=== PATIENT | female | born 1960 | race Caucasian/White ===

== ENCOUNTER 2021-11-20 04:17 | Inpatient (IN) ==
[2021-11-20] MEDS ORDERED: Aspirin 325 MG TABLET PO ONE (04:31)
[2021-11-20] MEDS ORDERED: 0.9 % Sodium Chloride 1,000 ML ONE ×3 (04:33→04:59)
[2021-11-20] MEDS ORDERED: *HR* Ticagrelor 90 MG TABLET PO ONE (04:37)
[2021-11-20] MEDS ORDERED: *HR* Heparin 5,000 UNIT/ML VIAL IVP ONE ×2 (04:37→17:32)
[2021-11-20] MEDS ORDERED: Morphine Sulfate 2 MG/ML SYRINGE IVP ONE (04:45)
[2021-11-20] MEDS ORDERED: Heparin 1,000 UNITS/500 mL 500 ML ONE ×2 (04:58→05:46)
[2021-11-20] MEDS ORDERED: *HR* Heparin 10,000 UNIT/10 ML VIAL ONE (04:58)
[2021-11-20] MEDS ORDERED: Iopamidol - 370 200 ML INFUS..BTL ONE ×2 (04:59→05:41)
[2021-11-20] MEDS ORDERED: Nitroglycerin 1,000 MCG/5 ML VIAL IV ONE (04:59)
[2021-11-20 05:04] LABS: Hematocrit 41.3 % (35.3-44.9); Hemoglobin 13.6 g/dL (11.5-15.4); Mean Corpuscular HGB Conc 32.9 g/dL (31.6-35.5); Mean Corpuscular Hemoglobin 32.4 pg (28.0-33.3); Mean Corpuscular Volume 98.3 fL (83.0-100.0); Platelet Count 302 K/mcL (140-400); Red Cell Distribution Width 14.4 % (11.5-14.5); White Blood Count 12.1 K/mcL (4.3-11.1)
[2021-11-20] MEDS ORDERED: *HR* Bivalirudin 250 MG VIAL IVC ONE (05:09)
[2021-11-20] MEDS ORDERED: *HR* Midazolam HCl 2 MG/2 ML VIAL ONE (05:09)
[2021-11-20] MEDS ORDERED: *HR* FentaNYL (PF) 100 MCG/2 ML VIAL ONE (05:09)
[2021-11-20 05:12] LABS: INR 0.9; Prothrombin Time 9.5 Seconds (9.4-12.1)
[2021-11-20] MEDS ORDERED: Perflutren Lipid Microsphere 1.3 ML in 0.9 % Sodium Chloride 8.7 ML IVP PRN (06:17)
[2021-11-20] MEDS ORDERED: Nitroglycerin 0.4 MG TAB.SUBL SL PRN (06:17)
[2021-11-20] MEDS ORDERED: 0.9 % Sodium Chloride 1,000 ML IVC SCH (06:30)
[2021-11-20 08:45] LABS: BUN/Creatinine Ratio 19 (6-26); Blood Urea Nitrogen 11 mg/dL (8-23); Carbon Dioxide 22 mEq/L (23-29); Chloride 109 mEq/L (98-107); Glucose 91 mg/dL (70-105); Osmolality,Calculated 285 (280-300); Potassium 4.1 mEq/L (3.5-5.1); Sodium 138 mEq/L (136-145); eGFR For African Americans > 60 (> 60); eGFR For Non-African Americans > 60 (> 60)
[2021-11-20] MEDS: lisinopriL 5 MG TABLET PO SCH (09:20)
[2021-11-20] MEDS: *HR* Ticagrelor 90 MG TABLET PO SCH ×2 (09:20→21:05)
[2021-11-20] MEDS: Aspirin 81 MG TAB.CHEW PO SCH (09:20)
[2021-11-20] MEDS: Metoprolol XL (24 HR) Succ 25 MG TAB.ER.24H PO SCH (09:20)
[2021-11-20] MEDS ORDERED: *HR* Heparin 5,000 UNIT/ML VIAL IVP PRN ×2 (17:32)
[2021-11-20] MEDS ORDERED: Heparin 25,000UNIT/250ML 1/2NS 25,000 UNIT/250 ML IV.SOLN IVC SCH (17:45)
[2021-11-20 18:32] LABS: Hematocrit 42.6 % (35.3-44.9); Hemoglobin 13.8 g/dL (11.5-15.4); Mean Corpuscular HGB Conc 32.4 g/dL (31.6-35.5); Mean Corpuscular Hemoglobin 32.6 pg (28.0-33.3); Mean Corpuscular Volume 100.7 fL (83.0-100.0); Platelet Count 274 K/mcL (140-400); Red Blood Count 4.23 M/mcL (3.82-4.97); Red Cell Distribution Width 14.5 % (11.5-14.5); White Blood Count 13.6 K/mcL (4.3-11.1)
[2021-11-20 18:45] LABS: Heparin anti-factor XA UFH < 0.04 IU/mL (0.30-0.70)
[2021-11-20 18:46] LABS: Prothrombin Time 10.9 Seconds (9.4-12.1)
[2021-11-20] MEDS: Acetaminophen 325 MG TABLET PO PRN (21:08)
[2021-11-21 02:43] LABS: Basophils % 0.3 %; Eosinophils # 0.1 K/mcL (0.0-0.6); Eosinophils % 0.7 %; Hematocrit 36.8 % (35.3-44.9); Hemoglobin 12.4 g/dL (11.5-15.4); Immature Granulocytes % 0.6 % (0-4); Lymphocytes # 1.7 K/mcL (0.6-4.6); Lymphocytes % 17.5 %; Mean Corpuscular HGB Conc 33.7 g/dL (31.6-35.5); Mean Corpuscular Hemoglobin 32.5 pg (28.0-33.3); Mean Corpuscular Volume 96.3 fL (83.0-100.0); Mean Platelet Volume 10.1 fL (9.4-12.4); Monocytes % 10.4 %; Neutrophils # 6.6 K/mcL (1.6-8.9); Platelet Count 262 K/mcL (140-400); Red Blood Count 3.82 M/mcL (3.82-4.97); Red Cell Distribution Width 14.2 % (11.5-14.5); Segmented Neutrophils % 70.5 %; White Blood Count 9.4 K/mcL (4.3-11.1)
[2021-11-21 03:23] LABS: BUN/Creatinine Ratio 15 (6-26); Blood Urea Nitrogen 8 mg/dL (8-23); Calcium 8.4 mg/dL (8.6-10.3); Carbon Dioxide 23 mEq/L (23-29); Chloride 108 mEq/L (98-107); Chol/HDL Ratio 5.5 (0-4.9); Cholesterol 233 mg/dL (< 200); Glucose 104 mg/dL (70-105); HDL Cholesterol 42 mg/dL (40-59); LDL Cholesterol,Calculated 137 mg/dL (< 100); Osmolality,Calculated 287 (280-300); Potassium 3.4 mEq/L (3.5-5.1); Sodium 139 mEq/L (136-145); Triglycerides 271 mg/dL (< 150); eGFR For African Americans > 60 (> 60); eGFR For Non-African Americans > 60 (> 60)
[2021-11-21 03:51] LABS: Troponin I 12.23 ng/mL (< 0.04)
[2021-11-21] MEDS: Aspirin 81 MG TAB.CHEW PO SCH (08:19)
[2021-11-21] MEDS: lisinopriL 5 MG TABLET PO SCH (08:19)
[2021-11-21] MEDS: Metoprolol XL (24 HR) Succ 25 MG TAB.ER.24H PO SCH (08:19)
[2021-11-21] MEDS: *HR* Ticagrelor 90 MG TABLET PO SCH ×2 (08:42→19:55)
[2021-11-21] MEDS ORDERED: *HR* FentaNYL (PF) 100 MCG/2 ML VIAL ONE (12:47)
[2021-11-21] MEDS ORDERED: *HR* Heparin 10,000 UNIT/10 ML VIAL ONE ×2 (12:48→13:52)
[2021-11-21] MEDS ORDERED: 0.9 % Sodium Chloride 2,000 ML ONE (12:48)
[2021-11-21] MEDS ORDERED: Iopamidol - 370 200 ML INFUS..BTL ONE (12:48)
[2021-11-21] MEDS ORDERED: *HR* Midazolam HCl 2 MG/2 ML VIAL ONE (12:48)
[2021-11-21] MEDS ORDERED: Nitroglycerin 1,000 MCG/5 ML VIAL IV ONE (12:48)
[2021-11-21] MEDS ORDERED: Heparin 1,000 UNITS/500 mL 500 ML ONE (12:48)
[2021-11-21] MEDS ORDERED: Tirofiban 12.5 MG/250ML 12.5 MG/250 ML BAG ONE (14:12)
[2021-11-21] MEDS: Acetaminophen 325 MG TABLET PO PRN ×2 (16:39→22:15)
[2021-11-22 02:52] LABS: Basophils % 0.3 %; Eosinophils # 0.1 K/mcL (0.0-0.6); Eosinophils % 0.7 %; Hematocrit 35.3 % (35.3-44.9); Hemoglobin 11.7 g/dL (11.5-15.4); Immature Granulocytes % 0.8 % (0-4); Lymphocytes # 1.5 K/mcL (0.6-4.6); Lymphocytes % 13.3 %; Mean Corpuscular HGB Conc 33.1 g/dL (31.6-35.5); Mean Corpuscular Hemoglobin 32.5 pg (28.0-33.3); Mean Corpuscular Volume 98.1 fL (83.0-100.0); Mean Platelet Volume 10.3 fL (9.4-12.4); Monocytes # 1.2 K/mcL (0.0-1.3); Monocytes % 10.1 %; Neutrophils # 8.7 K/mcL (1.6-8.9); Platelet Count 283 K/mcL (140-400); Red Cell Distribution Width 14.5 % (11.5-14.5); Segmented Neutrophils % 74.8 %; White Blood Count 11.6 K/mcL (4.3-11.1)
[2021-11-22 03:09] LABS: BUN/Creatinine Ratio 20 (6-26); Blood Urea Nitrogen 13 mg/dL (8-23); Calcium 8.4 mg/dL (8.6-10.3); Carbon Dioxide 23 mEq/L (23-29); Chloride 107 mEq/L (98-107); Glucose 101 mg/dL (70-105); Osmolality,Calculated 284 (280-300); Potassium 3.9 mEq/L (3.5-5.1); Sodium 137 mEq/L (136-145); eGFR For African Americans > 60 (> 60); eGFR For Non-African Americans > 60 (> 60)
[2021-11-22] MEDS: Acetaminophen 325 MG TABLET PO PRN (03:54)
[2021-11-22] MEDS ORDERED: DiphenhydraMINE CREAM 28.4 GM TUBE TP PRN (04:15)
[2021-11-22] MEDS: Aspirin 81 MG TAB.CHEW PO SCH (07:38)
[2021-11-22] MEDS: *HR* Ticagrelor 90 MG TABLET PO SCH (07:38)
[2021-11-22] MEDS: Metoprolol XL (24 HR) Succ 25 MG TAB.ER.24H PO SCH (07:38)
[2021-11-22] MEDS: lisinopriL 5 MG TABLET PO SCH (07:38)
[2021-11-22 11:39] VITALS: TEMP 99.9
[2021-11-22 12:14] VITALS: BP 115/70; O2SAT 98
[2021-11-22 12:16] VITALS: PULSE 99
[2021-11-23] MEDS ORDERED: lisinopriL 5 MG TABLET PO SCH (09:00)
== END 2021-11-22 13:42 | disposition home or self-care (01) | DRG 247 ==
LOC: EMEROOARM 04:17 → ICNU 04:17 → 2NNU 20:43
PROVIDERS: ADMIT Internal Medicine Interventional Cardiology; ATTEND Internal Medicine Interventional Cardiology